=== PATIENT | male | born 1950 | race Caucasian/White ===

== ENCOUNTER 2019-10-11 11:52 | Emergency (ER) | payer MEDICARE, BC ==
--- NOTE | 2019-10-11 12:27 | RAD ---
RADIOGRAPH CHEST 1 VIEW: DATE: 10/11/2019 TIME: 12:21 PM HISTORY: 77-year-old male with dyspnea COMPARISON: 05/21/2019 FINDINGS: Magnification of cardiac shadow due to positioning and large left para cardial fat pad. Sternotomy wi res. Diffuse pulmonary venous engorgement, greater than on prior study. No loan pulmonary alveolar edema or consolidation. Lateral costophrenic angles are sharp. No pneumothorax. IMPRESSION: Minimal congestive heart failure or fluid volume overload.
[2019-10-11] MEDS ORDERED: Iopamidol 370 76% 150 ML VIAL FS ONE (12:38)
[2019-10-11] MEDS ORDERED: Nitroglycerin 2% Ointment 1 INCH/1 GM Packet ONE (12:42)
[2019-10-11] MEDS ORDERED: Furosemide 40 MG/4 ML VIAL ONE (12:42)
[2019-10-11 13:23] LABS: #Basophils 0.1 thou/uL (0.0-0.2); #Eosinphils 0.3 thou/uL (0.0-0.7); #Monocytes 0.4 thou/uL (0.11-0.59); %Basophils 1.6 % (0.0-1.0); %Eosinophils 5.5 % (0.0-10.0); %Lymphocytes 21.4 % (21.0-51.0); %Neutrophils 63.6 % (42.0-75.0); Anisocytosis SLIGHT = 6-15 cells (100X) (0-5/hpf); Hemoglobin 12.2 g/dL (14.0-18.0); Hypochromia SLIGHT = 6-15 cells (100X) (0-5/hpf); MDiff Complete? YES; Mean Corpuscular HGB CONC 29.5 g/dL (32.0-36.0); Mean Corpuscular Hemoglobin 27.2 pg (27.0-31.0); Mean Corpuscular Volume 92.1 fL (78.0-98.0); Mean Platelet Volume 9.1 fL (7.4-10.4); Platelet Count 195 thou/uL (130-400); Platelet Morphology Comment Appears Adequate; RBC Distribution Width 13.7 % (11.5-14.5); Red Blood Cell (RBC) Count 4.49 mill/uL (4.70-6.10); White Blood Cell (WBC) Count 4.7 thou/uL (4.8-10.8)
[2019-10-11 13:29] LABS: ALT (SGPT) 19 U/L (8-55); AST (SGOT) 20 U/L (5-34); Albumin 4.2 g/dL (3.4-4.8); Alkaline Phosphatase 99 U/L (40-110); Anion Gap 17 mmol/L (10-20); BUN (Urea Nitrogen) 14 mg/dL (8.4-25.7); Bilirubin, Total 0.5 mg/dL (0.2-1.2); Calc. Creatinine Clearance 0 mL/min (70-130); Calcium 8.3 mg/dL (7.8-10.44); Carbon Dioxide 27 mmol/L (23-31); Chloride 104 mmol/L (98-107); Estimated GFR-MDRD 60; Globulin 2.8 g/dL (2.4-3.5); Glucose 192 mg/dL (80-115); Sodium 144 mmol/L (136-145)
--- NOTE | 2019-10-11 14:32 | CT ---
CT PULMONARY ANGIOGRAM WITH IV CONTRAST AND 3D POST PROCESSING: HISTORY: Dyspnea. Elevated D-dimer. FINDINGS: There is good contrast opacification of the pulmonary arterial vasculature without filling defects to suggest pulmonary embolism. The thoracic aorta is well opacified without aneurysmal dissection. No p leural or pericardial effusions are seen. No pneumothoraces, focal areas of consolidation or lung mas ses are identified. Chronic changes are stable since 11/11/2016. There are degenerative changes in the spine. IMPRESSION: No CT evidence of pulmonary embolism. POS: OFF
== END 2019-10-11 18:44 | disposition short-term general hospital (02) ==
LOC: MADERS 11:52
DX: I50.1 Left ventricular failure, unspecified (principal); J90 Pleural effusion, not elsewhere classified; I25.10 Atherosclerotic heart disease of native coronary artery without angina pectoris; E11.9 Type 2 diabetes mellitus without complications; E78.5 Hyperlipidemia, unspecified; E78.00 Pure hypercholesterolemia, unspecified; I10 Essential (primary) hypertension; Z87.891 Personal history of nicotine dependence; Z79.01 Long term (current) use of anticoagulants; Z79.82 Long term (current) use of aspirin; Z79.899 Other long term (current) drug therapy
CPT/HCPCS: 36415; 36416; 71045; 71275; 80053; 83605; 83880; 84484; 85025; 85379; 93005; 94760; 96374; J1940

== ENCOUNTER 2022-11-03 17:23 | Outpatient (CLI) | payer MEDICARE | END 2022-11-03 17:24 | disposition home or self-care (01) | LOC: MADRAD 17:23 | PROVIDERS: ATTEND Registered Nurse | DX: U07.1 COVID-19 (principal); J44.9 Chronic obstructive pulmonary disease, unspecified; J18.9 Pneumonia, unspecified organism | CPT/HCPCS: 71046 ==